=== PATIENT | male | born 1980 | race Caucasian/White ===

== ENCOUNTER → 2018-09-03 14:30 | Emergency (ER) | payer BC, OTHER ==
[~2018-09-03 14:30] MED LIST: Tetan/Diph/Pertus SYR(Tdap)* 0.5 ML SYR(BOOSTRIX) use SYR IM ONE
--- NOTE | 2018-09-03 18:16 | ED ---
Laceration/Wound HPI - HPI Summary HPI Summary: 37-year-old male presents with laceration to face. He states that he ended up losing undercollar baster on a saw and it ended up striking his face. He has a laceration above his left eyebrow. No loss consciousness. No change in vision. No nosebleeds. Able to move his eyes out without difficulty. No vomiting. Is on blood thinners. Tetanus is not up-to-date. - History of Current Complaint Stated Complaint: LAC ON FACE FROM SAW ZALL PER PT Time Seen by Provider: 09/03/18 17:47 Pain Intensity: 0 - Allergy/Home Medications Allergies/Adverse Reactions: Allergies Allergy/AdvReac Type Severity Reaction Status Date / Time diphenhydramine Allergy Airway Verified 09/03/18 14:38 [From Benadryl] Obstruction Penicillins Allergy Hives Verified 09/03/18 14:38 Home Medications: Home Medications NK [No Home Medications Reported] 09/03/18 [History Confirmed 09/03/18] PMH/Surg Hx/FS Hx/Imm Hx Endocrine/Hematology History: Denies: Hx Anticoagulant Therapy Cardiovascular History: Denies: Hx Myocardial Infarction Infectious Disease History: No Infectious Disease History: Denies: Traveled Outside the [place] in Last 30 Days - Family History Known Family History: Positive: Non-Contributory - Social History Alcohol Use: Occasionally Substance Use Type: Reports: None Smoking Status (MU): Never Smoked Tobacco Review of Systems Negative: Fever Negative: Chest Pain Negative: Shortness Of Breath Positive: Other - laceration All Other Systems Reviewed And Are Negative: Yes Physical Exam Triage Information Reviewed: Yes Vital Signs On Initial Exam: Initial Vitals Temp Pulse Resp BP Pulse Ox 99.1 F 95 16 189/112 97 09/03/18 14:32 09/03/18 14:32 09/03/18 14:32 09/03/18 14:32 09/03/18 14:32 Vital Signs Reviewed: Yes Appearance: Positive: Well-Appearing Skin: Positive: Warm, Dry, Other - 4cm by 1/2cm laceration above left eyebrow Head/Face: Positive: Normal Head/Face Inspection Eyes: Positive: Normal, EOMI, MARTINA, Conjunctiva Clear ENT: Positive: Normal ENT inspection, Pharynx normal, TMs normal Respiratory/Lung Sounds: Positive: Clear to Auscultation, Breath Sounds Present Cardiovascular: Positive: Normal, RRR Musculoskeletal: Positive: Normal Neurological: Positive: Sensory/Motor Intact, Alert, Oriented to Person Place, Time, CN Intact II-III Psychiatric: Positive: Normal Procedures - Laceration/Wound Repair 1 Location: face Description: Irregular Anesthesia: Local, 1.0% Length, Depth and Shape: 4cm by 1/2cm Diagnostics - Vital Signs Vital Signs Temp Pulse Resp BP Pulse Ox 09/03/18 14:32 99.1 F 95 16 189/112 97 - Laboratory Lab Statement: Any lab studies that have been ordered have been reviewed, and results considered in the medical decision making process. Laceration Repair Course/Dx - Course Course Of Treatment: 37-year-old male presents with laceration to face. He states that he ended up losing undercollar baster on a saw and it ended up striking his face. He has a laceration above his left eyebrow. No loss consciousness. No change in vision. No nosebleeds. Able to move his eyes out without difficulty. No vomiting. Is on blood thinners. Tetanus is not up-to-date. On exam has a 4 cm by 1/2cm laceration above left eyebrow. Placed 4 sutures. told to keep the area clean and dry. patient understands agrees with plan. - Differential Dx Differental Diagnoses: Abrasion, Avulsion, Laceration - Clinical Impression Provider Diagnoses: Facial laceration Discharge - Sign-Out/Discharge Documenting (check all that apply): Patient Departure Patient Received Moderate/Deep Sedation with Procedure: No - Discharge Plan Condition: Good Disposition: HOME Patient Education Materials: Care For Your Stitches (ED) Forms: *Work Release Referrals: No Primary Care Phys,NOPCP [Primary Care Provider] - Additional Instructions: Keep area clean and dry for 24 hours Take Tylenol or ibuprofen for pain every 6 hours apply ice to the area Return to ED or primary for suture removal in 5 days Return to ED if develop signs of infection such as fever, spreading redness, or pus formation - Billing Disposition and Condition Condition: GOOD Disposition: Home
[2018-09-03 19:01] LABS: Urine Benzodiazepine Screen None Detected (None Detect); Urine Opiates Screen None Detected (None Detect)
[2018-09-03 19:27] VITALS: BP 175/99
== END | disposition home or self-care (01) ==
LOC: ED 14:30
DX: S01.112A Laceration without foreign body of left eyelid and periocular area, initial encounter (principal); W45.8XXA Other foreign body or object entering through skin, initial encounter; Z23 Encounter for immunization
CPT/HCPCS: 12013; 80307; 90471; 90715; 99281